=== PATIENT | male | born 1935 | race Caucasian/White ===

== ENCOUNTER → 2023-10-19 13:03 | Outpatient (REF) | payer OTHER, SELFPAY | LOC: RAD 13:03 | PROVIDERS: ATTENDING PHYSICIAN Internal Medicine Critical Care Medicine; FAMILY PHYSICIAN Family Medicine | DX: R06.02 Shortness of breath (principal) | CPT/HCPCS: 71046; 78582; A9540; A9567 ==

== ENCOUNTER 2024-03-02 06:31 | Inpatient (IN) | payer OTHER, SELFPAY ==
[2024-03-01 18:55] VITALS: BP 159/75
[2024-03-01 19:05] VITALS: BMI 26.3
[2024-03-01 19:14] LABS: % Basophils 0.3 % (0-2); % Immature Granulocytes 0.2 % (0-0.5); % Lymphocytes 6.4 % (20.5-51.1); % Monocytes 7.7 % (1.7-9.3); % Neutrophils 85.4 % (42.2-75.2); Absolute Lymphocytes 0.6 10^3/uL (1.2-3.4); Absolute Monocytes 0.7 10^3/uL (0.1-0.6); Absolute Neutrophils 7.5 10^3/uL (1.4-6.5); Hematocrit 41.6 % (39.0-52.0); Hemoglobin 13.7 g/dL (13.0-18.0); Mean Corp Hgb Conc. 32.9 g/dL (33.0-37.0); Mean Corpuscular Hgb 29.8 pg (27.0-31.0); Mean Corpuscular Volume 90.4 fL (80.0-94.0); Mean Platelet Volume 12.4 fL (7.4-10.4); Nucleated Red Blood Cells % 0 % (-); Platelet Count 131 10^3/uL (130-400); White Blood Cell Count 8.8 10^3/uL (4.8-10.8)
[2024-03-01 19:27] LABS: APTT 28.3 Sec (23.4-35.0); PT 14.5 Sec (11.4-14.6)
--- NOTE | 2024-03-01 19:35 | ED.GENMED ---
History of Present Illness
General
Chief Complaint: Weakness
Time Seen by Provider: 03/01/24 19:19
History of Present Illness
History of Present Illness:
88yoM hx HLD presenting with expressive aphasia starting at 1830 this evening. Pt's states pt was sitting on the couch and was having difficulty standing up, states he was rocking back and forth (which is not atypical for him to do to stand up)
but it took him longer than normal. Pt's states pt then walked up stairs to the computer. She followed pt, asked if he was okay, and pt said yes. states pt then stood up and walked to the bedroom to go lay down. states she was
concerned something was off, so she called 911 which pt was agreeable for. states pt was talking without difficulty at that time. On arrival to triage, noted pt was having expressive aphasia. Pt states he feels like he's having difficulty
getting his words out, start 30 minutes prior to arrival. Otherwise pt denies chest pain, headache, numbness, weakness, tingling or visual changes.
If applicable-neuro sx onset
Onset of symptoms known: Yes
Date of onset of symptoms: 03/01/24
Time of onset of symptoms: 18:30
Time pt last seen normal is known: Yes
Date last time pt seen normal: 03/01/24
Time last time pt seen normal: 18:30
Past History
Past History
ED Past Medical History: Hypercholesterolemia and Other (Recurrent syncope)
ED Past Surgical History: Other (Pilonidal cyst)
Social History
Tobacco: Smoker
Alcohol: Occasional
Drug: None
Family History
Family History: Other (mother with CA of the rectum, father with heart disease)
Phy Exam
Physical Exam
Physical Exam:
General: Alert, no acute distress
Head: NCAT
Eyes: clear conjunctiva, perrla, eomi, no nystagmus
Neck: supple
Cardiac: regular rate and rhythm, no murmur
Lungs: clear to auscultation bilaterally. No wheezes, rales, or rhonchi. Speaking full unlabored sentences. No respiratory distress.
Abdomen: soft, nondistended nontender. No rebound or guarding.
MSK: no lower extremity edema bilaterally. No deformity
Skin: warm, dry
Neuro: Alert and oriented x3. CNII-XII grossly intact with no focal deficits. Normal finger to nose. Sensation intact. No pronator drift. Vision intact. No slurred speech. Mild expressive aphasia while describing what happened but otherwise able to
say sentences and describe pictures on stroke card without difficulty
NIH Stroke Score
Level of Consciousness: 0 - Alert
LOC questions: 0-Answers both correctly
LOC Commands: 0-Performs both correctly
Best Gaze: 0-Normal
Visual Antony: 0=Normal, no visual loss
Facial palsy: 0=Normal, symmetrical
Motor - Right Arm: 0=No drift 10 seconds
Motor - Left Arm: 0=No drift 10 seconds
Motor - Right Le-No drift 5 seconds
Motor - Left Le-No drift 5 seconds
Limb Ataxia: 0-Absent
Sensation: 0-Normal
Best Language: 1-Mild aphasia
Dysarthria: 0-Normal
Extinction and Inattention: 0-No abnormality
Total Score:: 1
Course
Orders/Labs/Results
Orders:
Orders
03/01/24 19:04
Electrocardiogram (*1) Urgent
Reason for Study: Other
Other Reason for Exam: Possible Stroke
Bedside Glucose- Treatment ONCE
Cardiac Monitoring- Treatment ONCE
IV Insert/Care/Rem.- Treatment PRN
03/01/24 19:05
CT HEAD STROKE ALERT W/o Cont Urgent
Comment:
Reason For Exam: aphasia
EKG- Treatment ONCE
03/01/24 19:07
Complete Blood Count/With Diff Urgent
PTT Urgent
Prothrombin Time Urgent
03/01/24 19:28
Troponin I Urgent
03/01/24 19:34
CT Head & Neck Angio W/wo IV Urgent
Comment:
Reason For Exam: expressive aphasia
03/01/24 21:52
Comprehensive Metabolic Panel Urgent
03/01/24 21:55
Aspirin Chewable [Low Strength Aspirin] 81 mg PO NOW STA
Clopidogrel Bisulfate [Plavix] 75 mg PO NOW STA
03/01/24 23:12
Admit/Transfer Patient As Directed
Co-Sign Provider:
Level of Care: Observation services
Assign to:: Telemetry
Physician / Group: Roman Roberson
Diagnosis: expressive aphasia
Reason for Telemetry: CVA/TIA
Date to Stop Telemetry: 03/04/24
Time to Stop Telemetry: 11:00
PRN Pain Medication Management As Directed
May give lesser potent ordered pain med per pt: Yes
preference::
Protocol:: Medication orders for pain may be administered in a
manner that supports deferring to patient preference
when the pt is:
- Requesting an ordered lesser potent pain medication.
Least to most potent pain medications are defined
as: acetaminophen < NSAID < tramadol < opioids
(morphine, oxycodone, hydromorphone).
- Requesting a lesser dose of the same medication IF
ORDERED.
- Requesting a less intrusive route of administration
if both routes are prescribed by the provider (PO <
IV).
03/01/24 23:13
Code Status As Directed
Resuscitation Status: Full Code
03/01/24 23:37
Case Management Consult ONCE
Case Management Consult: Discharge Planning
Comment: stroke/tia
NEUROLOGY CONSULT Urgent
Consulting Provider: Fidel Holman
Was physician already notified: Yes
MR Brain Without Contrast Routine
Comment:
Reason For Exam: stroke/TIA
Recent pill cam endoscopy?: No
Activity As Directed
Activity Level: Out of Bed-Early Mobility
NIH Stroke Scale As Directed
Directions: Per protocol
Comment: every shift and with any change in condition or mental status
Neurological Checks As Directed
Frequency: q4h
Additional Instructions:: q4h x 24h upon admission to the floor, then qshift & with any change in condition
and mental status
Patient Education As Directed
Type: Stroke education packet
Comment: provide to patient and family
Pneumatic Compression Sleeves As Directed
Type: Knee high
Swallow Screening CVA/TIA ONLY As Directed
Comment: NPO until swallowing screening completed
If patient FAILS swallow screening:: NPO, Speech Therapy consult, Aspiration Precautions
If patient PASSES swallow screening, diet:: Cholesterol Lowering
Vital Signs As Directed
Frequency: Per unit guidelines
Ot Eval And Treat Routine
Pt Eval And Treat Routine
Activity Level: Out of Bed-Early Mobility
Speech Therapy Eval & Treat Routine
DX Deep Vein Thrombosis Video Routine
03/01/24 23:46
Type+Screen Routine
Erythrocyte Sed Rate Routine
Glycohemoglobin (HgbA1c) Routine
03/02/24 06:00
Cardiovascular Evaluation IN AM
Troponin I IN AM
03/02/24 08:00
Aspirin Chewable [Low Strength Aspirin] 81 mg PO DAILY
Clopidogrel Bisulfate [Plavix] 75 mg PO DAILY
acitretin See Dose Instructions PO Q48H
03/02/24 18:00
Cholecalciferol (Vitamin D3) [VITAMIN D3 (cholecalciferol)] 50 mcg PO QPM
Enoxaparin Sodium [Lovenox] 40 mg SC QPM
03/02/24 22:00
Atorvastatin [Lipitor] 20 mg PO HS
03/04/24 11:00
DC Protocol for Telemetry ONCE
Abnormal Lab Results
03/01/24 03/01/24 03/01/24
19:07 19:28 21:52
RBC 4.60 L 10^6/uL
(4.70-6.10)
MCHC 32.9 L g/dL
(33.0-37.0)
RDW 15.0 H %
(11.5-14.5)
MPV 12.4 H fL
(7.4-10.4)
Absolute Neuts (auto) 7.5 H 10^3/uL
(1.4-6.5)
Absolute Lymphs (auto) 0.6 L 10^3/uL
(1.2-3.4)
Absolute Monos (auto) 0.7 H 10^3/uL
(0.1-0.6)
Neutrophils % 85.4 H %
(42.2-75.2)
Lymphocytes % 6.4 L %
(20.5-51.1)
Sodium 133 L mmol/L
(135-145)
Creatinine 1.4 H mg/dL
(0.7-1.3)
Glucose 104 H mg/dl
(70-99)
Troponin I 0.059 H* ng/ml
03/01/24 19:07
03/01/24 21:52
Vital Signs
Initial and Last Documented VS:
Initial Vital Signs
Temp Pulse Resp BP Pulse Ox
98.1 F 54 20 159/75 97
03/01/24 18:55 03/01/24 18:55 03/01/24 18:55 03/01/24 18:55 03/01/24 18:55
Last Documented Vital Signs
Temp Pulse Resp BP Pulse Ox
99.7 F 53 14 157/72 98
03/02/24 03:11 03/02/24 03:15 03/02/24 03:11 03/02/24 02:40 03/02/24 03:11
MDM/Problems Addressed
Differential Diagnosis Includes:
stroke, tia, electrolyte abnormality, uti
MDM/Problems Addressed:
Stroke alert called in triage. On my initial evaluation, NIHSS 1 for expressive aphasia. Discussed with Dr. Holman, neurology, who did not recommend TNK given minimal deficits, elderly age, risk of bleeding. If CT negative for bleed, recommends
aspirin 81mg and plavix 75mg. Recommends CTA head/neck. Will admit for further workup
Results reviewed. Initial troponin 0.059. Patient denies chest pain or shortness of breath. EKG shows sinus bradycardia 49 bpm with HI 192 QTc 428 no acute ischemic changes. CT head shows no acute intracranial hemorrhage transcortical infarct.
Discussed with hospitalist for admission
*Critical Care Note
Total Time (30-74mins, 75-104mins- exclusive of procedures): Not Applicable
ED Attending Note
-
Portions of this chart may have been created with voice recognition software.� Occasional wrong word or��sound alike� substitutions may have occurred due to the inherent limitations of voice recognition software.
Discharge Plan
Departure
Patient Disposition: Admit
Date of Disposition: 03/01/24
Time of Disposition: :27
Presentation/result/management discussed w/ accepting MD/DO: Hospitalist
Discharge Problem:
Stroke
Interventions
Interventions:
*Risk Screen - Suicide Last Done: 03/01/24 19:00
*General Assessment Last Done: 03/01/24 18:55
*Neglect/Abuse Screening Last Done: 03/01/24 19:00
*Nursing Disposition Last Done: 03/02/24 02:43
ED- Cardiac Assessment Last Done: 03/01/24 19:00
ED- Neurological Assessment Last Done: 03/02/24 00:05
ED- Pulmonary Assessment Last Done: 03/01/24 19:00
Discharge Date and Time
Discharge Date/Time: 03/02/24 02:44
[2024-03-01 20:00] VITALS: BP 157/63
[2024-03-01 20:14] LABS: Troponin I 0.059 ng/ml
[2024-03-01 21:03] VITALS: BP 145/101
[2024-03-01 22:00] VITALS: BP 155/64
[2024-03-01] MEDS: LOW STRENGTH ASPIRIN 81 MG PO (22:08)
[2024-03-01] MEDS: PLAVIX 75 MG PO (22:08)
[2024-03-01 22:15] LABS: ALT (SGPT) 19 U/L (0-50); AST (SGOT) 25 U/L (17-59); Albumin 3.8 g/dl (3.5-5.0); Alkaline Phosphatase 69 U/L (38-126); Blood Urea Nitrogen 19 mg/dl (9-20); Calcium 8.7 mg/dl (8.4-10.2); Carbon Dioxide 29 mmol/L (22-30); Chloride 99 mmol/L (98-107); Estimated Creatinine Clearance 42 ml/min; Glucose 104 mg/dl (70-99); Potassium 4.8 mmol/L (3.5-5.1); Sodium 133 mmol/L (135-145); Total Bilirubin 0.5 mg/dl (0.2-1.3); Total Protein 6.3 g/dl (6.3-8.2); eGFR 48.04
--- NOTE | 2024-03-01 22:28 | HPS.HSE ---
Family Physician
-
Family Physician: Bryan Bonilla
Chief Complaint
-
weakness
History of Present Illness
Patient is an 88-year-old male with past medical history significant for hyperlipidemia who presented to [facility] ED for evaluation of weakness. Patient reported that patient went to get up from couch in normal fashion with some rocking back
and forth but took longer than normal. Patient eventually got up successfully without incident and walked upstairs to computer, in which followed him, shortly after he went to bedroom to lie down. She states she was concerned something was
wrong so called 911. She reports patient was talking without issue. ED note indicates that in triage patient was having expressive aphasia. Patient reported to staff he felt he was having difficulty finding his words for approximately 30 minutes.
Patient denies chest pain, headache, numbness, dizziness, weakness, tingling or visual changes.
Medical History
Past Medical History
Past Medical History: Reports Other
Additional Past Medical History:
hyperlipidemia
psoriasis
Past Surgical History: Reports Other
Additional Past Surgical History:
Pilonidal cyst
spetoplasty
Social History
Tobacco: Smoker (daily cigar)
Alcohol: Occasional
Drug: None
Personal:
Living: With Family
Employment: Retired
Family History
Family History: Not pertinent
Allergies / Home Medications
Allergies reflects when Allergies were last updated in [facility].
Home Medications with original date entered in [facility]
Allergy/Medication List:
Allergies
Allergy/AdvReac Type Severity Reaction Status Date / Time
No Known Allergies Allergy Unverified 03/01/24 19:35
Home Medications
cholecalciferol (vitamin D3) 50 mcg (2,000 unit) capsule (Vitamin D3) 2,000 unit PO QPM 07/17/18
acitretin 25 mg capsule 25 mg PO Q48H 07/18/18
atorvastatin 20 mg tablet 20 mg PO HS 03/01/24
Review of Systems
-
History Source: Patient
Constitutional: Reports No Symptoms
EENT: Reports No Symptoms
Respiratory: Reports No Symptoms
Cardiac: Reports No Symptoms
Abdomen/GI: Reports No Symptoms
: Reports No Symptoms
Musculoskeletal: Reports No Symptoms
Skin: Reports No Symptoms
Neurological: Reports Weakness and Other (expressive aphsia)
Endocrine: Reports No Symptoms
Hematologic/Lymphatic: Reports No Symptoms
Psych: Reports No Symptoms
Physical Exam
Vital Signs
Vital Signs
Temp Pulse Resp BP Pulse Ox
98.1 F 52 17 157/63 99
03/01/24 18:55 03/01/24 20:15 03/01/24 20:41 03/01/24 20:00 03/01/24 19:30
Physical Exam
General: Well Developed, Well Nourished, Comfortable and Conversant
HEENT: NormoCephalic, Moist mucous membranes, Atraumatic, [place] Conjunctivae, Nose Appears Normal, Ears Appear Normal and Hearing Impaired
Respiratory: Clear, Non Labored Respirations and Decreased Breath Sounds
Cardiac: S1/S2 and Regular Rhythm; No Murmur, Rub or Gallop
Breast: Deferred by me
GI: Soft, Non Tender, Non Distended and Normal Bowel Sounds; No Organomegaly
Rectal: Deferred by Provider
Genito-urinary: Deferred by me
Musculoskeletal: No Clubbing, No Cyanosis and No Edema
Skin: Warm and IV/Catheter Site; No Rash
Neuro: Awake, Alert, AO x 3, No Motor Deficits, Nonfocal/grossly intact, Cranial Nerves Intact, No Sensory Deficits, DTR's Intact & Symmetrical and Other (expressive aphasia )
Psych: Calm and Intact Judgment/Insight
Laboratory Results
-
03/01/24 19:07
03/01/24 21:52
Laboratory Results
PT 14.5 Sec (11.4-14.6) 03/01/24 19:07
INR 1.10 03/01/24 19:07
APTT 28.3 Sec (23.4-35.0) 03/01/24 19:07
Total Bilirubin 0.5 mg/dl (0.2-1.3) 03/01/24 21:52
AST 25 U/L (17-59) 03/01/24 21:52
ALT 19 U/L (0-50) 03/01/24 21:52
Alkaline Phosphatase 69 U/L (38-126) 03/01/24 21:52
Troponin I 0.059 ng/ml H* 03/01/24 19:28
Data Reviewed
-
CT Scan: Report Reviewed by me (Head CT: 1. No CT evidence for acute intracranial hemorrhage or transcortical infarct. 2. Mild diffuse cerebral volume loss. 3. Mild periventricular white matter leukoaraiosis. 4. Moderate cerebellar volume
loss. 5. 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 6. Small mucous)
Medical Tests (Nuc Med, Echo, EKG etc): Report Reviewed by me (NECK CTA: 1. Calcific atherosclerotic plaque in both proximal internal carotid arteries causing a 50% diameter stenosis in the proximal right ICA and less than 25% diameter stenosis
in the proximal left ICA. 2. Less than 50% diameter stenosis in the proximal left vertebral artery. 3. Severe m)
Lab Data: Labs Reviewed by me
Impression/Plan
-
IMPRESSION/PLAN:
#weakness and expressive aphasia
Ddx TIA vs. CVA
Head CT: 1. No CT evidence for acute intracranial hemorrhage or transcortical infarct.
2. Mild diffuse cerebral volume loss.
3. Mild periventricular white matter leukoaraiosis.
4. Moderate cerebellar volume loss.
5. 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
6. Small mucous retention cysts in both maxillary sinuses.
NECK CTA: 1. Calcific atherosclerotic plaque in both proximal internal carotid arteries causing a 50% diameter stenosis in the proximal right ICA and less than 25% diameter stenosis in the proximal left ICA.
2. Less than 50% diameter stenosis in the proximal left vertebral artery.
3. 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 Severe multilevel neural foraminal narrowing.
HEAD CTA: 1. Moderate calcific atherosclerotic plaque in both intracranial internal carotid arteries causing less than 50% diameter stenosis.
2. 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
3. No CTA evidence for middle or anterior cerebral artery stenosis or occlusion.
4. Moderate hypoplasia of the right intracranial vertebral artery and mild hypoplasia of the left intracranial vertebral artery.
5. No CTA evidence for stenosis or occlusion in the basilar posterior cerebral arteries.
6. 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
7. Mild diffuse cerebral and cerebellar volume loss.
- admit to telemetry
- consult neurology
- NIH and neurochecks
- MRI in morning
- start aspirin and plavix
#Hyperlipidemia
- continue atorvastatin
#psoriasis
- continue acitretin
Code status: full code
DVT Prophylaxis: SCDs
[2024-03-01 23:00] VITALS: BP 130/71
--- NOTE | 2024-03-01 23:33 | W.PN.UPDATE ---
Update Note
Progress Note Update
Attending addendum
Patient seen independently
88-year-old man presents for evaluation of weakness. Patient's reported that patient went to get up from couch in normal fashion with some rocking back and forth but took longer than normal. Patient eventually got up successfully without
incident and walked upstairs to computer, in which followed him, shortly after he went to bedroom to lie down. At that time, She reports patient was talking without issue. In ED triage patient was having expressive aphasia. Patient reported to
staff he felt he was having difficulty finding his words for approximately 30 minutes. Patient denies chest pain, headache, numbness, dizziness, weakness, tingling or visual changes. At the time of my interview, he was still having some word
finding difficulties. CT in ED showed:
1. No CT evidence for acute intracranial hemorrhage or transcortical infarct.
2. Mild diffuse cerebral volume loss.
3. Mild periventricular white matter leukoaraiosis.
4. Moderate cerebellar volume loss.
5. 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
6. Small mucous retention cysts in both maxillary sinuses.
NECK CTA:
1. Calcific atherosclerotic plaque in both proximal internal carotid arteries causing a 50% diameter stenosis in the proximal right ICA and less than 25% diameter stenosis in the proximal left ICA.
2. Less than 50% diameter stenosis in the proximal left vertebral artery.
3. 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 Severe multilevel neural foraminal narrowing.
HEAD CTA:
1. Moderate calcific atherosclerotic plaque in both intracranial internal carotid arteries causing less than 50% diameter stenosis.
2. 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
3. No CTA evidence for middle or anterior cerebral artery stenosis or occlusion.
4. Moderate hypoplasia of the right intracranial vertebral artery and mild hypoplasia of the left intracranial vertebral artery.
5. No CTA evidence for stenosis or occlusion in the basilar posterior cerebral arteries.
6. 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
7. Mild diffuse cerebral and cerebellar volume loss.
Past Medical History
hyperlipidemia
psoriasis
Past Surgical History: Reports Other
Additional Past Surgical History:
Pilonidal cyst
spetoplasty
Physical Exam
General: Well Developed, Well Nourished, Comfortable and Conversant, some frustration with word finding
HEENT: NormoCephalic, Moist mucous membranes, Atraumatic, [place] Conjunctivae, Nose Appears Normal, Ears Appear Normal and Hearing Impaired
Respiratory: Clear, Non Labored Respirations and Decreased Breath Sounds
Cardiac: S1/S2 and Regular Rhythm; No Murmur, Rub or Gallop
GI: Soft, Non Tender, Non Distended and Normal Bowel Sounds; No Organomegaly
Neuro: Awake, Alert, AO x 3, No Motor Deficits, Nonfocal/grossly intact, Cranial Nerves Intact,
No Sensory Deficits, DTR's Intact & Symmetrical and Other (mild intermittent expressive aphasia )
Psych: Calm
Impression/Plan
1. weakness and expressive aphasia - probable CVA
- telemetry
- consulted neurology
- NIH and neurochecks
- MRI in morning
- started aspirin and plavix
2. Hyperlipidemia
- continue atorvastatin
Code status: full code
DVT Prophylaxis: SCDs
[2024-03-02] VITALS (11 sets, daily range): BP systolic 113–157; BP diastolic 58–82; PULSE 53; O2SAT 98; BMI 25.8
[2024-03-02 00:32] LABS: Erythrocyte Sed Rate 15 mm/hour (0-20)
--- NOTE | 2024-03-02 01:14 | W.PN.UPDATE ---
Update Note
Progress Note Update
Patient noted to be sinus caren, with HR in 50's. Pauses lasting around 2 seconds started around 2100. Length of pauses increased around midnight to >3 seconds. Patient is both awake and asleep during pauses, denies any lightheadedness, dizziness,
feeling of fainting, chest pain or shortness of breath. Ordered Magnesium level for am, TSH, Echo and Cardiology consult. Continue monitoring on telemetry overnight.
--- NOTE | 2024-03-02 03:18 | PTCARENOTE ---
Received pt from ER into 2250. AAOx3 NIH 0 denies pain or headache. SB on the monitor VSS denies cp or dizziness. Call yusuf within reach.
[2024-03-02 04:04] LABS: HDL Cholesterol 53 mg/dl; LDL Cholesterol, Calculated 84 mg/dl; Magnesium 2.1 mg/dl (1.6-2.3); Total Cholesterol 156 mg/dl (50-199); Triglyceride 95 mg/dl (10-149); Very Low Density Lipoprotein 19 mg/dl (0-30)
[2024-03-02 04:20] LABS: Troponin I 0.083 ng/ml
[2024-03-02 04:33] LABS: TSH 0.62 uIU/ml (0.47-4.68)
--- NOTE | 2024-03-02 05:38 | W.PN.UPDATE ---
Update Note
Progress Note Update
RN notified patient with mild fever and cough noted. Will check for flu and Covid.
--- NOTE | 2024-03-02 06:31 | W.PN.HOSP.TC ---
Addendum entered and electronically signed by Sebastián Castaneda MD 03/02/24 13:32:
Addendum
Pt tested positive for cOVID, explains fever/ cough
Will d/w ID, might need ant-viral TX
Chest x ray reviewed, seems more LL density c/w mild PNA
Brain MRI, no acute stroke but presentation was c/w ischemic event, continue to treat as TIA.
End
Original Note:
Today's Communication/Plan
-
Change to inpatient status
FLU & COVID test
Blood culture
PRN Tylenol
Chest x ray
Echo of heart
f/w neurology and cardiology recommendations
Assessment / Plan
Assessment / Plan
Physical Exam
General: Well Developed, Well Nourished, Comfortable and Conversant
HEENT: Normocephalic, Moist mucous membranes, Atraumatic, [place] Conjunctivae, Nose Appears Normal, Ears Appear Normal and Hearing Impaired
Respiratory: Clear, Non Labored Respirations and Decreased Breath Sounds
Cardiac: S1/S2
GI: Soft, Non Tender, Non Distended and Normal Bowel Sounds
Rectal: no bleeding
Genito-urinary: No hematuria.
Musculoskeletal: No Clubbing, No Cyanosis and No Edema
Skin: Warm, not jaundiced.
Neuro: Awake, Alert, AO x 3, No Motor Deficits, Nonfocal/grossly intact, mild words finding difficulty noticed.
Psych: Calm and Intact Judgment/Insight
#weakness and expressive aphasia
Ddx TIA vs. CVA
- NIH and neuro-checks
- MRI of brain
CT & CTA no acute findings.
- start aspirin and Plavix
- Appreciate neurology input
# Low grade fever
Staff noted some cough. Patient denies respiratory problem or nasal congestion
Check Flu & COVID
Will do blood culture
Check chest x ray
Urine looks clean
# Hyponatremia, mild
#CKD stage IIIb
# RBBB/ Sinus bradycardia
Will review strips
Was noted to have pauses
Asymptomatic
Mild troponin 0.059 to 0.083, not conclusive for ACS
Normal TSH
Appreciate cardiology input
#Hyperlipidemia
- continue atorvastatin
#psoriasis
- continue acitretin
Total time spent to see the patient, examine the patient, review data and lab results, discuss treatment plan with patient, nursing staff around 55 minutes
Anticipated Discharge: > 48 hours
Subjective/Interval History
-
Date of Service: March 02, 2024
No chest pain
Denies fever or headache
denies cough or sob
not congested
Objective Data
-
Labs:
Laboratory Results
03/01/24 03/01/24 03/01/24
19:07 19:28 21:52
WBC 8.8
Hgb 13.7
Hct 41.6
Plt Count 131
PT 14.5
INR 1.10
APTT 28.3
Sodium Cancelled Cancelled 133 L
Potassium Cancelled Cancelled 4.8
Chloride Cancelled Cancelled 99
Carbon Dioxide Cancelled Cancelled 29
BUN Cancelled Cancelled 19
Creatinine Cancelled Cancelled 1.4 H
Glucose Cancelled Cancelled 104 H
Calcium Cancelled Cancelled 8.7
Total Bilirubin Cancelled Cancelled 0.5
AST Cancelled Cancelled 25
ALT Cancelled Cancelled 19
Alkaline Phosphatase Cancelled Cancelled 69
Vital Signs:
Vital Signs
Temp Pulse Resp BP Pulse Ox
99.7 F 53 14 157/72 98
03/02/24 03:11 03/02/24 03:15 03/02/24 03:11 03/02/24 02:40 03/02/24 03:11
I&O
02/29/24 03/01/24 03/02/24
06:59 06:59 06:59
Output Total 200 / 200
Balance -200 / -200
--- NOTE | 2024-03-02 07:44 | CON.NEURO ---
Addendum entered and electronically signed by Fidel Holman MD 03/02/24 13:53:
Patient's NIH stroke scale was 1 due to mild aphasia
Original Note:
Neuro Assessment/Plan
Assessment
Abrupt onset of aphasia
Likely due to acute ischemic stroke of the anterior circulation; not demonstrated by MRI of brain leaving the final diagnosis as TIA or toxic metabolic encephalopathy
Not a candidate for tenecteplase or IAT due to NIHSS < 6
Plan
continue newly initiated aspirin and Clopidogrel for total of 21 days, then aspirin alone
Patient may be at higher risk for having stroke based on likely COVID-19 infection
advance Atorvastatin from 20 to 40 mg due to LDL > 70
Await COVID-19 infection test results
rehab evaluations
Will follow peripherally
Consultation
Order
Date of Consultation: 03/02/24
Requesting Provider: Hospitalist
Reason for Consult: Aphasia
Subjective/Objective
Subjective Data
Date of Service: March 02, 2024
R-handed
'Everybody says I may have aphasia.' Sudden onset of speech difficulty without accompanying symptoms. No prior events which were similar.
Initially presented to the hospital due to sudden slowing of movements gnereally. Also found to have cough and questionable fever after presentation.
Objective Data
Vital Signs
Temp Pulse Resp BP Pulse Ox
37.6 C 53 14 157/72 98
03/02/24 03:11 03/02/24 03:15 03/02/24 03:11 03/02/24 02:40 03/02/24 03:11
Lab Results
03/01/24 19:07
03/01/24 21:52
PT 14.5 Sec (11.4-14.6) 03/01/24 19:07
INR 1.10 03/01/24 19:07
APTT 28.3 Sec (23.4-35.0) 03/01/24 19:07
Sodium 133 mmol/L (135-145) L 03/01/24 21:52
Potassium 4.8 mmol/L (3.5-5.1) 03/01/24 21:52
BUN 19 mg/dl (9-20) 03/01/24 21:52
Glucose 104 mg/dl (70-99) H 03/01/24 21:52
Calcium 8.7 mg/dl (8.4-10.2) 03/01/24 21:52
LDL Cholesterol, Calc 84 mg/dl 03/02/24 03:23
Patient Allergies
No Known Allergies Allergy (Unverified 03/01/24 19:35)
CVA Assessment
Onset of Stroke Symptoms
Onset of symptoms known: Yes
Date of onset of symptoms: 03/01/24
Time of onset of symptoms: 15:00
Time pt last seen normal is known: Yes
Date last time pt seen normal: 03/01/24
Time last time pt seen normal: 15:00
Review of Systems
-
History Source: Patient
All other systems: Reviewed and negative
EENT: Hearing Loss; Negative Decreased Vision or Swallowing Difficulty
Respiratory: Negative Trouble Breathing
Cardiac: Negative Chest Pain
Abdomen/GI: Negative Incontinence of Stool
Genitourinary: Negative Incontinence
Musculoskeletal: Negative Back Pain or Neck Pain
Neuro: Negative Dizzy or Headache
Physical Exam
-
General: No Apparent Distress, Appears Stated Age and Wearing Oxygen
Eyes: Round OU, [place] Conjunctivae and No Ptosis
HEENT: Anicteric and Moist Mucous Membranes
Neck: Full Range of Motion
Respiratory: No Dyspnea
Cardiac: No JVD
GI: Non-distended
Skin: Unremarkable
Extremities: No Clubbing, No Cyanosis and No Edema
Psych: Intact Judgement/Insight
Extended Neurological Exam
Mood & Affect: Mood Unremarkable and Affect Unremarkable
Attention Span & Concentration: Awake, Alert, Interactive and Mild Difficulty with 2 Step Request
Memory: Unremarkable
Tremor: Hand Tremor Absent and Head Tremor Absent
Speech: Quantity Unremarkable and Other (Intermittent word finding difficulty, increased with stress); Negative Dysarthric
Cranial Nerve II: Left Eye: Pupillary Reactivity Unremarkable, Pupillary Size Unremarkable and Visual Antony Intact
Cranial Nerve II: Right Eye: Pupillary Reactivity Unremarkable, Pupillary Size Unremarkable and Visual Antony Intact
Cranial Nerves III, IV, : Extraocular Movement: Extraocular Movement Full in all Directions
Cranial Nerve VII: Facial Symmetry: Normal Facial Symmetry
Cranial Nerve VIII: Hearing: Negative Unremarkable Hearing to Normal Conversational Volume
Cranial Nerves IX, X: Palate Movement: Palate Elevation Symmetric
Cranial Nerve XI: Shoulder Shrug: Unremarkable
Cranial Nerve XII: Tongue Protusion: Midline
Muscle Strength, Overall: Full Throughout
Muscle Bulk & Tone: Bulk Unremarkable and Tone Unremarkable
Pronator Drift: No Drift in Upper Extremities
Touch Sensation: Unremarkable
Coordination: [id number] Testing Unremarkable
Data Reviewed
-
CT-A: Report Reviewed
CT Head: Report Reviewed and Image Reviewed
MRI Head: Report Reviewed and Image Reviewed
Labs: Report Reviewed
Lipid Profile: Ordered
Reviewed with: Physician, Nurse Practioner and Patient
Old Records: Summarized
Medications
-
Active Medications
Generic Name Dose Route Start Last Admin
Trade Name Freq PRN Reason Stop Dose Admin
Aspirin 81 mg 03/02/24 08:00
Aspirin 81 Mg Chewable Tablet PO 03/30/24 07:59
DAILY JADYN
Atorvastatin Calcium 20 mg 03/02/24 22:00
Atorvastatin (Lipitor) 20 Mg Tablet PO 03/30/24 21:59
HS JADYN
Cholecalciferol 50 mcg 03/02/24 18:00
Cholecalciferol (Vitamin D3) 50 Mcg Tablet (2,000 Units) PO 03/30/24 17:59
QPM JADYN
Clopidogrel Bisulfate 75 mg 03/02/24 08:00
Clopidogrel 75 Mg Tablet PO 03/30/24 07:59
DAILY JADYN
Enoxaparin Sodium 40 mg 03/02/24 18:00
Enoxaparin Sodium 40 Mg/0.4 Ml Syringe SC 03/30/24 17:59
QPM JADYN
Acitretin 25 Mg 0 mg 03/02/24 08:00
Capsule Po Q48h PO 03/30/24 07:59
Q48H JADYN
Sodium Chloride 0 flush 03/01/24 23:00
Sodium Chloride 0.9% (Flush) Syringe IV 03/29/24 22:59
PER PROTOCOL JADYN
Home Medications
�Medication �Instructions �Recorded
cholecalciferol (vitamin D3) 50 2,000 unit PO QPM 07/17/18
mcg (2,000 unit) capsule (Vitamin
D3)
acitretin 25 mg capsule 25 mg PO Q48H 07/18/18
atorvastatin 20 mg tablet 20 mg PO HS 03/01/24
Past History
Past History
ED Past Medical History: Hypercholesterolemia, Other (orthostatic hypotension, essential tremor, psoriasis, ) and Other (Recurrent syncope, gout)
ED Past Surgical History: Cardiac (implanted rib bender 2018) and Other (Pilonidal cyst)
Social History
Tobacco: Smoker
Alcohol: Occasional
Drug: None
Family History
Family History: Other (mother with CA of the rectum, father with heart disease)
[2024-03-02 08:12] LABS: Urine Albumin Trace (Neg - Trace); Urine Bilirubin Negative (Negative); Urine Character Clear (Clear); Urine Color Yellow; Urine Glucose Negative (Negative); Urine Ketone Negative (Negative); Urine Leukocyte Negative (Negative); Urine Nitrite Negative (Negative); Urine Occult Blood Negative (Negative); Urine Specific Gravity 1.015 (<1.030); Urine Urobilinogen Negative (Neg - 1+)
[2024-03-02 08:32] LABS: Glycohemoglobin (HgbA1c) 5.6 % (4.0-5.6)
[2024-03-02 09:09] LABS: COVID-19 Antigen Positive (Negative)
--- NOTE | 2024-03-02 10:00 | PTCARENOTE ---
Assumed care of pt from prev nsg shift; Pt AAOx3 w/no c/o CP or SOB. Pt states he 'feels very tired & worn out'. Pt's HR in the 50's w/freq drops to 40's. Pt's BP stable at 126/58 this AM. Pt is SB/SA w/pauses on telemetry monitoring. Pt w/low grade
temp 100.3, PRN PO Tylenol order rec'd by hospitalist. Tylenol administered as ordered. Pt swabbed for flu & Covid & resulted positive for Covid this AM. Dr Castaneda & infection prevention notified. Novel respiratory precautions initiated for pt. Pt
taken by this RN to MRI & Radiology for close monitoring due to freq pauses on telemetry monitoring. Pt passed swallow eval w/elicia RN during NIHSS & Neurocheck this AM. Pt advised of activity restrictions & plan of care. Pt w/call yusuf within reach
& plan of care ongoing.
[2024-03-02] MEDS: PLAVIX 75 MG PO (10:02)
[2024-03-02] MEDS: TYLENOL 1000 MG PO ×2 (10:02→20:03)
[2024-03-02] MEDS: LOW STRENGTH ASPIRIN 81 MG PO (10:02)
--- NOTE | 2024-03-02 13:58 | CON.ID ---
Consultation
-
Date/Time Consultation Requested: March 02, 2024
Date/Time Consultation Performed: March 02, 2024
Requesting Provider: Dr. Yue Castaneda
Performing Provider: Dr. Sarah Johnson
Reason for Consultation: COVID
Chief Complaint / Past History
Chief Complaint
Weakness, cough
History of Present Illness
88 year old male with history of HLD who presented to ED 03/01/24 due to weakness. His noted he had difficulty getting up form the couch. In ED, pt noted to have expressive aphasia x 30 minutes. MRI brain, no acute infarct. He was started on
Plavix and ASA. T=100.3 . Pt also c/o of new cough, nonproductive. COVID is positive. Patient denies SOB, MONTIEL, rhinorrhea, or sore throat. He is up to date with this season's COVID vaccine.
Past History
Additional Past Medical History:
Psoriasis
HLD
septoplasty
Allergy History:
No Known Allergies Allergy (Unverified 03/01/24 19:35)
Medications Reviewed: Yes
Current Antibiotics:
None
Social History
Tobacco: Smoker (cigar)
Alcohol: Occasional
Drug: None
Personal:
Family History
Family History: Not Pertinent
Review of Systems
Review of Systems
General: Change in Appetite; Negative Fever or Chills
HEENT: Negative Sinus Problems, Headache or Pharyngitis
Cardiovascular: Negative Chest Pain
Respiratory: Cough; Negative Dyspnea or Sputum Production
Gasteroenterology: Negative Nausea, Vomiting or Diarrhea
Genital / Urological: Negative Dysuria
Endocrine: Weakness
Skin / Hair / Nails: Negative Rash
Neurological: Negative Dizziness
All systems: All other systems were reviewed and were negative
Vital Signs
Temp Pulse Resp BP Pulse Ox
99.3 F 50 20 144/70 95
03/02/24 12:04 03/02/24 12:00 03/02/24 12:04 03/02/24 11:54 03/02/24 12:04
Physical Exam
Physical Exam
Constitutional: No Acute Distress and Comfortable
Head: Other (No frontal or maxillary sinus tenderness. )
Eyes: No Conjunctival Hemorrhage and Sclera Anicteric
Cardiovascular: Regular Rate and S1/S2
Pulmonary: Clear; Negative Wheezes or Rales
Gastrointestinal: Soft, Non Tender and Non Distended
Extremities: Negative Edema
Neurological: AO x 3
Lab / Diagnostic Study Results
03/01/24 19:07
03/01/24 21:52
Abs Immat Gran (auto) 0.0 10^3/uL (0-0.05) 03/01/24 19:07
Absolute Neuts (auto) 7.5 10^3/uL (1.4-6.5) H 03/01/24 19:07
Absolute Lymphs (auto) 0.6 10^3/uL (1.2-3.4) L 03/01/24 19:07
Absolute Monos (auto) 0.7 10^3/uL (0.1-0.6) H 03/01/24 19:07
Absolute Basos (auto) 0.0 10^3/uL (0-0.2) 03/01/24 19:07
Immature Gran % 0.2 % (0-0.5) 03/01/24 19:07
Neutrophils % 85.4 % (42.2-75.2) H 03/01/24 19:07
Lymphocytes % 6.4 % (20.5-51.1) L 03/01/24 19:07
Monocytes % 7.7 % (1.7-9.3) 03/01/24 19:07
Eosinophils % 0.0 % (0-6) 03/01/24 19:07
Basophils % 0.3 % (0-2) 03/01/24 19:07
ESR 15 mm/hour (0-20) 03/01/24 23:46
PT 14.5 Sec (11.4-14.6) 03/01/24 19:07
INR 1.10 03/01/24 19:07
Microbiology Results
Micro:
03/02/24 09:26 Blood Culture - Pending
Blood/Venous
03/02/24 08:31 Influenza Types A & B (SAMEER) - Final
Nasal Swab Negative for Influenza A & B, NAAT
Negative results must be combined with clinical observations
and patient history.
Nucleic Acid Amplification test (NAAT)performed on the
[employer] platform.
03/02/24 MRI brain: Minor chronic microvascular white matter ischemic change. No evidence of acute infarct. Possible changes of previous trauma or remote infarct with small microhemorrhages involving the right frontal white matter.
03/02/24 CXR: Mild bibasilar atelectasis and/or pneumonia.
Assessment / Plan
# Symptomatic COVID19 infection, mild
- Vaccinated individual.
-Symptom onset 03/01.
-Start Paxlovid 150/100mg po bid x 10 doses.
- Hold atorvastatin while on PAxlovid.
- COVID isolation.
# Toxic metabolic encephalopathy
- Discussed with neurologist; pt less likely to have TIA.
He is OK to dc Plavix.
Care Review
Plan reviewed with: Physician (Drs. Holman and Tonya)
--- NOTE | 2024-03-02 14:59 | CM ---
CM following for DC planning needs.
Met w/ patient at bedside to complete initial assessment.
Pt. resides w/ sig. other in a private, 2 story home.
Pt. is quite indep. at baseline w/ ADLs, mobilities; still drives.
Pt. has RX plan and uses [facility] in [place] for prescription needs.
Anticipated DC plan is for home, no needs.
Will follow.
--- NOTE | 2024-03-02 15:15 | CON.CAR ---
Addendum entered and electronically signed by Gamaliel Dougherty MD 03/02/24 17:27:
88 yo male with PMH of sinus bradycardia, RBBB, prior syncope thought to be orthostatic in etiology (no events on prior ILR) was admitted with aphasia. Found to have COVID. Aphasia is thought to be TIA vs toxic/metabolic and seems to have
resolved. We are consulted for bradycardia. He denies sxs such as dizziness and pre-syncope. Exam with irregular rhythm, no murmurs, no edema. EKG: SB, RBBB. Tele shows pauses up to 4 sec, with occasional junctional escape beats.
Echo today: EF 50-55%, no sig valve disease.
Seems to be developing sinus node dysfunction. No symptoms. Will continue to monitor tele overnight, and re-assess in AM. We discussed topic of PPM in case of worsening conduction disease.
Original Note:
Consultation
Consultation Request
Date/Time Consultation Requested: 03/02/24 0123
Date/Time Consultation Performed: 03/02/24 1516
Requesting Provider: Eusebia Whitman NP
Performing Provider: Laura HAM for
Reason for Consultation: bradycardia, RBBB, pauses
Medical History
-
Chief Complaint: weakness
History of Present Illness:
88 y/o male (patient of Dr. Diaz) with dyslipidemia, sinus bradycardia, RBBB, prior syncope (negative Linq monitor), and orthostatic light-headedness who is here for evaluation after his didn't think he was acting right. In ER, felt to have
expressive aphasia. Neuro saw and suspects TIA or TME, after brain imaging negative. Overnight, he had fever and cough and has tested positive for COVID19. We are consulted since he was noted to have pauses on telemetry. He denies any
light-headedness, dizziness, syncope, or chest discomfort.
Past Medical History
Past Medical History: Arrhythmias, Hypercholesterolemia and Other (as above )
Social History
Personal:
Living: With Family
Family History
Family History: Reviewed & Not Pertinent
Allergies / Home Medications
Allergy/AdvReac Type Severity Reaction Status Date / Time
No Known Allergies Allergy Unverified 03/01/24 19:35
�Medication �Instructions �Recorded �Confirmed �Type
cholecalciferol (vitamin D3) 50 2,000 unit PO QPM 07/17/18 03/01/24 History
mcg (2,000 unit) capsule (Vitamin
D3)
acitretin 25 mg capsule 25 mg PO Q48H 07/18/18 03/01/24 History
atorvastatin 20 mg tablet 20 mg PO HS 03/01/24 03/01/24 History
Review of Systems
-
History Source: Patient
All other systems: Negative unless noted
Constitutional: Fever
Respiratory: Cough
Neurological: Other (aphasia)
Physical Exam
Vital Signs
Temp Pulse Resp BP Pulse Ox
99.3 F 50 20 144/70 95
03/02/24 12:04 03/02/24 12:00 03/02/24 12:04 03/02/24 11:54 03/02/24 12:04
Lab Results
03/01/24 19:07
03/01/24 21:52
Troponin I 0.083 ng/ml H* D 03/02/24 03:23
Physical Exam
General: Well Developed, Well Nourished and No Apparent Distress
HEENT: Normocephalic and Anicteric
Respiratory: Rhonchi (b/l bases)
Cardiac: Regular Rhythm (SB)
Musculoskeletal: No Edema
Skin: Warm and Dry
Neuro: AO x 3
Psych: Calm
Impression / Plan
-
COVID19:
-CXR with concern for PNA
-on antiviral
-management per primary team
Expressive aphasia:seems to be resolved to my assessment
-initial concern for stroke, which is threat to bodily function
-however, per neuro, diagnosis is now felt to be TIA versus TME with no acute change on imaging- he is on ASA/Plavix, and statin increased
Bradycardia, RBBB, pauses:
-patient follows with Dr. Diaz as OP and is known to have RBBB and bradycardia
-he had [employer] working from [id number] and no severe bradycardia was noted
-on monitor here, I see HR in 40's currently. Telemetry shows pauses as long as 3.8 seconds overnight. Most pauses 2.5 seconds or less. Sometimes junctional bradycardia. Patient denies any dizziness, light-headedness, or syncope. No advanced heart
block on my review. He is not on any AV kareem agents.
-follow tele, will review with industrial management teacher, but no indication for pacing at this time to my review in this patient who is not symptomatic
Abnormal troponin:
-acute, ischemic myocardial injury in setting of covid19 infection
-no CP
-Echo this admit: Normal biventricular size and systolic function without regional wall motion abnormality. Estimated LVEF 50-55%. Aortic sclerosis without stenosis.
Data Reviewed
-
EKG: Tracing Personally Visualized and interpreted (SB with RBBB 49 BPM)
Radiology: Report Reviewed by me
Medical Tests (Nuc Med, Echo etc): Report Reviewed by me (Echo 07/18/18: Normal biventricular size and systolic function without regional wall motion abnormality. Mild concentric left ventricular hypertrophy. Aortic sclerosis without stenosis.)
Labs: Labs Reviewed by me
[2024-03-02] MEDS: LOVENOX 40 MG SC (17:18)
[2024-03-02] MEDS: VITAMIN D3 (cholecalciferol) 50 MCG PO (17:18)
[2024-03-02] MEDS: PAXLOVID 150-100 MG DOSE PACK 1 DOSE PO (20:04)
[2024-03-03] VITALS (7 sets, daily range): BP systolic 128–154; BP diastolic 61–83
--- NOTE | 2024-03-03 01:55 | PTCARENOTE ---
Assumed care of the pt @1900. Pt AAOx3 NIH score 0 denies headache SB/SA on the monitor VSS denies cp or dizziness VSS 2 LPM NC sat 99%. Pt ambulates to bathroom with stand by assist. Call yusuf within reach. NPO since midnight
--- NOTE | 2024-03-03 06:33 | W.PN.HOSP.TC ---
Today's Communication/Plan
-
Follow with cardiology evaluation
c/w Paxlovid
c/w isolation
Tylenol for fever
Encourage IS, ordered
Assessment / Plan
Assessment / Plan
Physical Exam
General: Well Developed, Well Nourished, Comfortable and Conversant
HEENT: Normocephalic, Moist mucous membranes, Atraumatic, [place] Conjunctivae, Nose Appears Normal, Ears Appear Normal and Hearing Impaired
Respiratory: Clear, Non Labored Respirations and Decreased Breath Sounds
Cardiac: S1/S2
GI: Soft, Non Tender, Non Distended and Normal Bowel Sounds
Rectal: no bleeding
Genito-urinary: No hematuria.
Musculoskeletal: No Clubbing, No Cyanosis and No Edema
Skin: Warm, not jaundiced.
Neuro: Awake, Alert, AO x 3, No Motor Deficits, Nonfocal/grossly intact, mild words finding difficulty noticed.
Psych: Calm and Intact Judgment/Insight
#weakness and expressive aphasia
Resolved.
Brain MRI no acute stroke
d/w neurologist Dr Holman, likely ischemic event ( TIA) , c/w aspirin , hold Plavix and Lipitor while on paxlovid.
- Appreciate neurology input
# Acute covid infection with viral bilateral basal pneumonia
Less cough, still mild fever
started on Paxlovid 03/02 pm time
Appreciate ID input
c/w isolation
No hypoxia detected.
# Hyponatremia, mild
#CKD stage IIIb
# RBBB/ Sinus bradycardia
Was noted to have pauses
Asymptomatic
Echo 03/02/24 showed LVEF 50-55%, no regional wall motion abnormalities, no significant valvular disease.
Mild troponin 0.059 to 0.083, not conclusive for ACS
Normal TSH
For EP cardiology evaluation today Dr Diaz
Not on Anti-kareem agents
Appreciate cardiology input
#Hyperlipidemia
- continue atorvastatin
#psoriasis
- continue acitretin
Total time spent to see the patient, examine the patient, review data and lab results, discuss treatment plan with patient, nursing staff around 57 minutes
Anticipated Discharge: > 48 hours
Subjective/Interval History
-
Date of Service: March 03, 2024
No chest pain
No sob
Objective Data
-
Vital Signs:
Vital Signs
Temp Pulse Resp BP Pulse Ox
98.6 F 50 16 143/80 100
03/03/24 03:56 03/03/24 03:56 03/03/24 03:56 03/03/24 03:51 03/03/24 03:56
I&O
03/01/24 03/02/24 03/03/24
06:59 06:59 06:59
Intake Total 720 / 720
Output Total 200 / 200 600 / 600
Balance -200 / -200 120 / 120
--- NOTE | 2024-03-03 08:00 | PTCARENOTE ---
Assumed care of pt from prev nsg shift; Pt AAOx3 w/no c/o CP or SOB. Pt's HR in the 50's-70's w/less frequent pauses this AM. Pt's BP stable at 128/61 this AM. Pt is SB/SA w/occas pauses on telemetry monitoring. Pt w/low grade temp 100.4, PRN
Tylenol administered as ordered. Pt's NIHSS & Neurocheck this AM 0 w/no changes from prev nsg assessment. Pt advised of activity restrictions & plan of care. Pt w/call yusuf within reach & plan of care ongoing.
--- NOTE | 2024-03-03 08:51 | W.PN.CD ---
Addendum entered and electronically signed by Gamaliel Dougherty MD 03/03/24 16:16:
abnormal troponin: should read acute, non-ischemic myocardial injury
Original Note:
Today's Communication / Plan
-
reviewed with EP: no indication for PPM
trend tele as he recovers from COVID
Impression / Plan
-
COVID19:
-CXR with concern for PNA
-on antiviral
-management per primary team
Expressive aphasia: resolved
-per neuro, diagnosis is now felt to be TIA versus TME with no acute change on imaging- he is on ASA/Plavix, and statin increased
Bradycardia, RBBB, sinus node dysfunction:
-patient follows with Dr. Diaz as OP and is known to have RBBB and bradycardia
-he had [employer] working from [id number] and no severe bradycardia was noted
-pauses up to 4 sec, seem to be improving; may be due to COVID; asymptomatic
-reviewed with EP: no indication for PPM at this time
Abnormal troponin:
-acute, ischemic myocardial injury in setting of covid19 infection
-no CP
-Echo this admit: Normal biventricular size and systolic function without regional wall motion abnormality. Estimated LVEF 50-55%. Aortic sclerosis without stenosis.
Dispo
-has f/u w Dr Diaz 04/19/24 at 10am
Physical Exam
Vital Signs/Labs
Vital Signs
Temp Pulse Resp BP Pulse Ox
100.4 F H 44 18 128/61 98
03/03/24 07:23 03/03/24 08:00 03/03/24 07:23 03/03/24 07:19 03/03/24 07:23
03/02/24 03/03/24 03/04/24
06:59 06:59 06:59
Actual Weight 91.1 kg
03/01/24 19:07
03/01/24 21:52
PT 14.5 Sec (11.4-14.6) 03/01/24 19:07
INR 1.10 03/01/24 19:07
APTT 28.3 Sec (23.4-35.0) 03/01/24 19:07
Magnesium 2.1 mg/dl (1.6-2.3) 03/02/24 03:23
Triglycerides 95 mg/dl (10-149) 03/02/24 03:23
LDL Cholesterol, Calc 84 mg/dl 03/02/24 03:23
VLDL Cholesterol, Calc 19 mg/dl (0-30) 03/02/24 03:23
HDL Cholesterol 53 mg/dl 03/02/24 03:23
TSH 0.62 uIU/ml (0.47-4.68) 03/02/24 03:23
LAB Results
03/01/24 03/01/24 03/02/24
19:07 19:28 03:23
Troponin I Cancelled 0.059 H* 0.083 H* D
Physical Exam
Constitutional: No acute distress
EENT: Moist mucous membranes
Cardiovascular: Rhythm & rate is regular, Pedal edema is absent, JVD pressure is normal and Systolic murmur present
Respiratory: Respiratory effort normal
Neuro/Psych: AO x 3
Data Reviewed
-
Date of Service: March 03, 2024
EKG: Other (Tele: SB; no advanced heart block)
Labs: Labs Reviewed by me
--- NOTE | 2024-03-03 09:19 | W.PN.ID1 ---
Date of Service
Date of Service: March 03, 2024
Today's Communication
Continue Paxlovid.
Assessment / Plan
# Symptomatic COVID19 infection, mild - moderate
# Fever
- Vaccinated individual.
-Symptom onset 03/01.
- Not hypoxic
-Continue Paxlovid 150/100mg po bid (dose 2 of 10)
- Hold atorvastatin while on Paxlovid.
-Follow temps
- COVID isolation.
# Toxic metabolic encephalopathy due to COVID, resolved.
# Bradycardia
-Cardiology following
Chief Complaint
-: Fever and Other (Covid)
Subjective / Review of Systems
Minimal cough. Hungry; ordering breakfast
Vital Signs / Physical Exam
Vital Signs
Vital Signs
Temp Pulse Resp BP Pulse Ox
100.4 F H 44 18 128/61 98
03/03/24 07:23 03/03/24 08:00 03/03/24 07:23 03/03/24 07:19 03/03/24 07:23
Physical Exam
Constitutional: No Acute Distress and Comfortable
Eyes: Sclera Anicteric
Cardiovascular: Other (bradycardia)
Pulmonary: Clear; Negative Wheezes, Rales or Rhonchi
Gastrointestinal: Soft, Non Tender, Non Distended and Normal Bowel Sounds
Extremities: Negative Edema
Neurological: AO x 3
Objective Data
Lab Data
Lab Results
03/01/24 19:07
03/01/24 21:52
ESR 15 mm/hour (0-20) 03/01/24 23:46
PT 14.5 Sec (11.4-14.6) 03/01/24 19:07
INR 1.10 03/01/24 19:07
APTT 28.3 Sec (23.4-35.0) 03/01/24 19:07
Estimated Creat Clear 42 ml/min 03/01/24 21:52
Total Bilirubin 0.5 mg/dl (0.2-1.3) 03/01/24 21:52
AST 25 U/L (17-59) 03/01/24 21:52
ALT 19 U/L (0-50) 03/01/24 21:52
Alkaline Phosphatase 69 U/L (38-126) 03/01/24 21:52
Most recent labs reviewed.
Micro Results:
03/02/24 09:26 Blood Culture - Pending
Blood/Venous
03/02/24 08:31 Influenza Types A & B (SAMEER) - Final
Nasal Swab Negative for Influenza A & B, NAAT
Negative results must be combined with clinical observations
and patient history.
Nucleic Acid Amplification test (NAAT)performed on the
[employer] platform.
03/02/24 MRI brain: Minor chronic microvascular white matter ischemic change. No evidence of acute infarct. Possible changes of previous trauma or remote infarct with small microhemorrhages involving the right frontal white matter.
03/02/24 CXR: Mild bibasilar atelectasis and/or pneumonia.
[2024-03-03] MEDS: TYLENOL 1000 MG PO ×2 (09:37→20:05)
[2024-03-03] MEDS: LOW STRENGTH ASPIRIN 81 MG PO (09:38)
[2024-03-03] MEDS: PAXLOVID 150-100 MG DOSE PACK 1 DOSE PO ×2 (09:47→19:48)
--- NOTE | 2024-03-03 16:58 | CM ---
CM following for DC planning needs.
Met w/ patient at bedside.
He feels well and is hopeful for DC tomorrow.
IMM presented and copy provided.
Pt. may need Lyft transport home as spouse does not drive. He declines any other needs.
Plan is for home, no needs.
[2024-03-03] MEDS: LOVENOX 40 MG SC (19:47)
[2024-03-03] MEDS: VITAMIN D3 (cholecalciferol) 50 MCG PO (19:48)
[2024-03-04 05:06] VITALS: BP 151/91
--- NOTE | 2024-03-04 06:50 | W.PN.HOSP.TC ---
Today's Communication/Plan
-
Discharge planning
Assessment / Plan
Assessment / Plan
Physical Exam
General: Well Developed, Well Nourished, Comfortable and Conversant
HEENT: Normocephalic, Moist mucous membranes, Atraumatic, Stronach Conjunctivae, Nose Appears Normal, Ears Appear Normal and Hearing Impaired
Respiratory: Clear, Non Labored Respirations and Decreased Breath Sounds
Cardiac: S1/S2
GI: Soft, Non Tender, Non Distended and Normal Bowel Sounds
Rectal: no bleeding
Genito-urinary: No hematuria.
Musculoskeletal: No Clubbing, No Cyanosis and No Edema
Skin: Warm, not jaundiced.
Neuro: Awake, Alert, AO x 3, No Motor Deficits, Nonfocal/grossly intact, mild words finding difficulty noticed.
Psych: Calm and Intact Judgment/Insight
#weakness and expressive aphasia
Resolved.
Brain MRI no acute stroke
d/w neurologist Dr Holman, likely ischemic event ( TIA) , c/w aspirin , hold Plavix and Lipitor while on paxlovid. Given instruction for dual antiplatelet therapy for total of 21 days then continue with aspirin lifelong and less contraindication
emerges.
- Appreciate neurology input
# Acute covid infection with viral bilateral basal pneumonia
Patient denies fever or shortness of breath. No hypoxia. No fevers
started on Paxlovid 03/02 pm time given prescription to finish course at home.
Appreciate ID input
c/w isolation
No hypoxia detected.
# Hyponatremia, mild. He declined further workup
#CKD stage IIIb
# RBBB/ Sinus bradycardia
Was noted to have short pauses
Asymptomatic
Echo 03/02/24 showed LVEF 50-55%, no regional wall motion abnormalities, no significant valvular disease.
Mild troponin 0.059 to 0.083, not conclusive for ACS
Normal TSH
Discussed with senior business broker, no indication for pacemaker.
Not on Anti-kareem agents
Appreciate cardiology input
#Hyperlipidemia
- continue atorvastatin
#psoriasis
- continue acitretin
Total discharge time spent to see the patient, examine the patient, review data and lab results, discuss discharge plan with patient, nursing staff around 67 minutes
Anticipated Discharge: Today
Subjective/Interval History
-
Date of Service: March 04, 2024
Doing well, denies chest pain, shortness of breath, coughing. Anxious to go home
Objective Data
-
Labs:
Laboratory Results
03/04/24
06:00
WBC Pending
Hgb Pending
Hct Pending
Plt Count Pending
Sodium Pending
Potassium Pending
Chloride Pending
Carbon Dioxide Pending
BUN Pending
Creatinine Pending
Glucose Pending
Calcium Pending
Total Bilirubin Pending
AST Pending
ALT Pending
Alkaline Phosphatase Pending
Vital Signs:
Vital Signs
Temp Pulse Resp BP Pulse Ox
98.6 F 65 18 139/75 97
03/04/24 05:05 03/04/24 05:00 03/04/24 05:05 03/03/24 23:34 03/04/24 05:05
I&O
03/02/24 03/03/24 03/04/24
06:59 06:59 06:59
Intake Total 720 / 720 960 / 960
Output Total 200 / 200 600 / 600
Balance -200 / -200 120 / 120 960 / 960
[2024-03-04 07:34] VITALS: BP 146/82
[2024-03-04] MEDS: LOW STRENGTH ASPIRIN 81 MG PO (07:38)
[2024-03-04] MEDS: PAXLOVID 150-100 MG DOSE PACK 1 DOSE PO (08:31)
--- NOTE | 2024-03-04 08:31 | W.PN.CD ---
Addendum entered and electronically signed by Gamaliel Dougherty MD 03/04/24 10:25:
abnormal troponin: should read acute, non-ischemic myocardial injury
Original Note:
Today's Communication / Plan
-
no indication for PPM
please call us back with additional questions
Impression / Plan
-
COVID19:
-CXR with concern for PNA
-on antiviral
-management per primary team
Expressive aphasia: resolved
-per neuro, diagnosis is now felt to be TIA versus TME with no acute change on imaging- he is on ASA; to resume plavix and statin after paxlovid
Bradycardia, RBBB, sinus node dysfunction:
-patient follows with Dr. Diaz as OP and is known to have RBBB and bradycardia
-he had [facility] working from [id number] and no severe bradycardia was noted
-pauses up to 4 sec, seem to be improving; may be due to COVID; asymptomatic
-reviewed with EP: no indication for PPM at this time
Abnormal troponin:
-acute, ischemic myocardial injury in setting of covid19 infection
-no CP
-Echo this admit: Normal biventricular size and systolic function without regional wall motion abnormality. Estimated LVEF 50-55%. Aortic sclerosis without stenosis.
Dispo
-has f/u w Dr Diaz 04/19/24 at 10am
Physical Exam
Vital Signs/Labs
Vital Signs
Temp Pulse Resp BP Pulse Ox
97.8 F 43 16 151/91 98
03/04/24 07:34 03/04/24 06:45 03/04/24 07:34 03/04/24 05:06 03/04/24 07:34
PT 14.5 Sec (11.4-14.6) 03/01/24 19:07
INR 1.10 03/01/24 19:07
APTT 28.3 Sec (23.4-35.0) 03/01/24 19:07
Magnesium 2.1 mg/dl (1.6-2.3) 03/02/24 03:23
Triglycerides 95 mg/dl (10-149) 03/02/24 03:23
LDL Cholesterol, Calc 84 mg/dl 03/02/24 03:23
VLDL Cholesterol, Calc 19 mg/dl (0-30) 03/02/24 03:23
HDL Cholesterol 53 mg/dl 03/02/24 03:23
TSH 0.62 uIU/ml (0.47-4.68) 03/02/24 03:23
LAB Results
03/01/24 03/01/24 03/02/24
19:07 19:28 03:23
Troponin I Cancelled 0.059 H* 0.083 H* D
Physical Exam
Constitutional: No acute distress
EENT: Moist mucous membranes
Cardiovascular: Rhythm & rate is regular and Pedal edema is absent
Respiratory: Respiratory effort normal
Neuro/Psych: Alert and Oriented
Data Reviewed
-
Date of Service: March 04, 2024
EKG: Other (Tele: SB 40s-50s, no pauses over 3 seconds in last 24hrs)
--- NOTE | 2024-03-04 09:54 | PTCARENOTE ---
IV and tele removed. Discharge instructions reviewed w/ pt. Verbalizes understanding. Belongings collected and sent home w/ pt. Escorted via WC and staff assist. Discharged to home.
--- NOTE | 2024-03-04 10:42 | W.DCSUMMARY ---
Discharge Summary
Discharge Data
Date of Admission: 03/02/24
Date of Discharge: 03/04/24
-
Pending Results: No
Hospital Course
88 years old male was brought into the hospital after experiencing sudden gait difficulty with expressive aphasia. His noticed and called the ambulance. Upon arrival to the ER, he did not have motor deficit but noted to have word finding
difficulty that lasted less than 24 hours in the hospital. Patient was evaluated by neurologist. Brain imaging studies including MRI did not show acute stroke. Patient was found also to have mild cough with fever. He tested positive for COVID
infection. Patient was evaluated by infectious disease wireless consultant and was started on course of Paxlovid. Patient did not have hypoxia. His cough resolved. Fever resolved. Discussion regarding his transient aphasia, neurologist felt could be
transient ischemic attack although would be hard to rule out fever induced encephalopathy. Patient was given dual antiplatelet therapy with a statin therapy but advised to hold Plavix and statin until finishing the course of Paxlovid. Patient was
noted to have sinus pauses. Evaluated by firebrick layer. Asymptomatic bradycardia. No indication for pacemaker. Echocardiogram showed normal biventricular size and function, left ventricular ejection fraction 50 to 55% with no significant valvular
heart disease. Patient remained hemodynamically stable and was discharged home in a stable condition.
Discharge Plan
-
Patient Disposition: Home (Routine Discharge)
Discharge Diagnosis/Procedures: -COVID infection: You were evaluated by infectious disease doctor, you are started on Paxlovid.
-Sinus bradycardia, right bundle branch block, sinus node dysfunction. You are seen by firebrick layer. No indications for pacemaker at this time.
-Expressive aphasia, suspect transient ischemic attack, you were evaluated by neurologist, recommended dual antiplatelet therapy with an aspirin lifelong with a statin therapy. Resume Plavix and atorvastatin after finishing Paxlovid.
Condition: Fair
Diet: As tolerated
Referrals:
Fidel Holman MD [Active] - in one month
Bryan Bonilla MD [Family Provider] - in one to two weeks
Vasquez Diaz MD [Active] - 04/19/24 10:00 am
Prescriptions:
New
aspirin 81 mg Tablet,Chewable
81 mg PO DAILY Qty: 30 0RF
Paxlovid 150-100 mg Tablets,Dose Pack
1 ea PO BID Qty: 6 0RF
Rx Instructions:
Patient received 4 doses of Paxlovid in the hospital
clopidogrel [Plavix] 75 mg tablet
75 mg PO DAILY Qty: 19 0RF
Rx Instructions:
Starts on 03/07 for 19 doses then stop
Continued
cholecalciferol (vitamin D3) [Vitamin D3] 2,000 UNIT capsule
2,000 unit PO QPM
acitretin 25 MG capsule
25 mg PO Q48H
Held
atorvastatin 20 mg Tablet
20 mg PO HS
Hold Instructions: Resume on 03/07/24.
Discharge Orders:
Discharge Patient (As Directed); Ordered 03/04/24
Ordered By: Sebastián Castaneda
Care Plan Goals
Care Plan Goals:
Problem: Readiness for enhanced knowledge related to diagnosis and treatment plan
Goal: Understand your diagnosis and treatment plan needs, including medications if applicable.
Instructions: Know your diagnosis, underlying causes and treatment plan options, including medications if applicable. Consult with your health care team to learn about your diagnosis and treatment plan, including medications if applicable.
Discharge Date and Time
Discharge Date/Time: 03/04/24 10:02
Print Language: VINCENTIAN
== END 2024-03-04 10:02 | disposition home or self-care (01) | DRG 177 ==
LOC: IVU 06:31
PROVIDERS: Nurse Practitioner Family; Nurse Practitioner Gerontology; Student in an Organized Health Care Education/Training Program; ADMITTING PHYSICIAN Internal Medicine; ATTENDING PHYSICIAN Internal Medicine; CONSULT PHYSICIAN Internal Medicine; CONSULT PHYSICIAN Psychiatry & Neurology Neurology; EMERGENCY PHYSICIAN Emergency Medicine; FAMILY PHYSICIAN Internal Medicine Geriatric Medicine; OTHER PHYSICIAN Internal Medicine Infectious Disease
DX: U07.1 COVID-19 (principal); J12.82 Pneumonia due to coronavirus disease 2019; G99.2 Myelopathy in diseases classified elsewhere; R47.01 Aphasia; I5A Non-ischemic myocardial injury (non-traumatic); E87.1 Hypo-osmolality and hyponatremia; I49.5 Sick sinus syndrome; I45.10 Unspecified right bundle-branch block; Z79.02 Long term (current) use of antithrombotics/antiplatelets; Z79.899 Other long term (current) drug therapy; E78.00 Pure hypercholesterolemia, unspecified; L40.9 Psoriasis, unspecified; F17.200 Nicotine dependence, unspecified, uncomplicated; I65.23 Occlusion and stenosis of bilateral carotid arteries; I65.02 Occlusion and stenosis of left vertebral artery; Z86.73 Personal history of transient ischemic attack (TIA), and cerebral infarction without residual deficits; M48.02 Spinal stenosis, cervical region; I70.0 Atherosclerosis of aorta; N18.32 Chronic kidney disease, stage 3b; G25.0 Essential tremor; H91.90 Unspecified hearing loss, unspecified ear; I95.1 Orthostatic hypotension; M10.9 Gout, unspecified; Z80.0 Family history of malignant neoplasm of digestive organs; Z82.49 Family history of ischemic heart disease and other diseases of the circulatory system
CPT/HCPCS: 70450; 70496; 70498; 70551; 71046; 80053; 80061; 81003; 83036; 83735; 84443; 84484; 85025; 85610; 85652; 85730; 86850; 86900; 86901; 87040; 87502; 87811; 93005; 93306; 97163; 97167; 97530; 99285; Q9967